=== PATIENT | female | born 1980 | race Caucasian/White ===

== ENCOUNTER 2018-04-23 22:29 | Emergency (ER) | payer OTHER, SELFPAY ==
[2018-04-23 22:30] VITALS: BP 122/86; PULSE 92; RESP 16; TEMP 36.7; O2SAT 99; BMI 22.4
[2018-04-23] MEDS: predniSONE 20 MG Tablet 40 MG PO (23:46)
[2018-04-23] MEDS: Famotidine 20 MG Tablet 40 MG PO (23:46)
[2018-04-23] MEDS: Lidocaine/Epi/Tetracaine 50 ML 1 APPLIC TOPICAL (23:46)
--- NOTE | 2018-04-24 00:30 | ED.DCSUM_ITS ---
- ER Visit Summary Date of Service: 04/24/18 Chief Complaint: Bee sting History of Present Illness: The patient is a 37 F who was stung on the left forearm yesterday. Patient thinks the stinger may still be in her arm. There is an area of redness to the left forearm that increased after working all night. She denies shortness of breath or throat tightness. Physical Examination: Vital signs unremarkable. Patient sitting upright in bed no acute distress. Head neck examination is normal. Heart is regular rate and rhythm. Lung sounds are clear. Abdomen is soft nontender. Left upper extremity examination was a 6 x 9 cm area of erythema on the volar portion of the left forearm consistent with a localized reaction to a sting. There is a central dark area that may represent a retained portion of the stinger. Normal neuro exam is noted. Test Results: [] Emergency Department Course and Treatment: Let is applied to the left forearm. There is a small piece of stinger removed. I am unsure if the full piece has b een removed. Patient is treated with Pepcid and prednisone. She will receive prescriptions for the same. She will continue to watch for any signs of infection. Treatment Plan: [] Disposition: Discharge Impression: Localized reaction to bee sting This note was generated with [employer] dictation software. It may contain incorrect words, spelling, and punctuation that were not noted in review of the chart prior to signing ED Disposition - Plan for ED Patient: Chief Complaint: Allergic Reaction Referrals: Care Physician,No Primary [Primary Care Provider] -
--- NOTE | 2018-04-24 00:30 | ED.DEP ---
ED Disposition - Plan for ED Patient: Disposition: Home or Assisted Living Chief Complaint: Allergic Reaction Instructions: ED Bite Sting Insect Local Allergic React Prescriptions: Prednisone [Deltasone] 40 mg PO DAILY #10 tablet Famotidine [Pepcid] 20 mg PO BID #28 tablet Referrals: Librado Coto MD [STAFF PHYSICIAN] - As Needed
[2018-04-24 00:39] VITALS: PULSE 78; RESP 16; O2SAT 98
== END 2018-04-24 00:40 | disposition home or self-care (01) ==
PROVIDERS: Emergency Provider Emergency Medicine
DX: T63.441A Toxic effect of venom of bees, accidental (unintentional), initial encounter (principal); R21 Rash and other nonspecific skin eruption; Y92.9 Unspecified place or not applicable; Z72.0 Tobacco use
CPT/HCPCS: 99283

== ENCOUNTER 2018-09-08 03:57 | Emergency (ER) | payer OTHER, SELFPAY ==
[2018-09-08 03:58] VITALS: BP 147/101; PULSE 65; RESP 18; TEMP 36.9; O2SAT 97; BMI 23.3
[2018-09-08] MEDS: Ketorolac 30 MG/ML Syringe IV (04:12)
[2018-09-08] MEDS: Ondansetron 4 MG/2 ML Vial IV (04:12)
[2018-09-08] MEDS: 0.9% Normal Saline 1,000 ML 1000 ML IV (04:12)
[2018-09-08 04:30] LABS: Absolute Lymphocyte Count 1.48 X10^3/ul (0.83-4.51); Absolute Neutrophil Count 11.7 X10^3/uL (2.0-7.7); Basophil# 0.03 X10^3/uL; Basophil% 0.2 % (0-1); Eosinophil# 0.14 X10^3/uL; Hemoglobin 14.6 g/dl (12.0-15.0); Lymphocyte # 1.48 X10^3/ul (4.0); Lymphocyte % 10.3 % (19-41); Mean Corp Hgb Conc 33.2 g/gl (32-36); Mean Corpuscular Hgb 30.8 pg (27.0-32.0); Mean Corpuscular Volume 92.8 fL (81-99); Mean Platelet Vol. 9.8 fl (6.2-12.0); Monocyte# 0.94 X10^3/uL; Monocyte% 6.5 % (0-10); Neutrophil # 11.74 X10^3/uL (2.7-7.7); Neutrophil % 81.7 % (47-70); Platelet Count 272 K/mm3 (150-450); RBC Distribution Width SD 40.7 fl (35.1-43.9); Red Blood Count 4.74 M/mm3 (4.2-5.4); White Blood Count 14.4 K/mm3 (4.4-11.0)
[2018-09-08 04:41] LABS: POSITIVE COUNT NO; POSITIVE DIFFERENTIAL NO; POSITIVE MORPHOLOGY NO
[2018-09-08 05:17] LABS: ALB/GLOB Ratio 1.3 RATIO (0.9-2.4); AST(SGOT) 16 U/L (15-37); Alanine Aminotransfer ALT/SGPT 21 U/L (13-56); Albumin, Serum 4.2 g/dL (3.2-5.0); Alkaline Phosphatase 82 U/L (45-117); Anion Gap 8 (5-15); Calcium,Total 9.2 mg/dL (8.5-10.1); Chloride 104 mmol/L (98-107); Creatinine, Serum 0.79 mg/dL (0.55-1.02); EST Glomerular Filtration Rate 86 mL/min (>60); Est Glom Filt Rate - Afr Amer 104 mL/min (>60); Estimated Creatinine Clearance 74.87 ml/min; Globulin 3.3 g/dL (2.2-4.2); Glucose 129 mg/dL (74-106); Lipase 125 U/L (73-393); Protein, Total 7.5 g/dL (6.4-8.2); Sodium Level 140 mmol/L (136-145)
[2018-09-08 05:18] LABS: BUN 14 mg/dL (7-18); BUN/Creat Ratio 17.7 RATIO (10-20); Pregnancy, Serum, hCG Quali. NEGATIVE Negative (0-9 Nonpreg)
--- NOTE | 2018-09-08 05:41 | CT_ITS ---
STUDY: CT ABDOMEN AND PELVIS WITH CONTRAST REASON FOR EXAM: Female, 38 years old. Abdominal pain RADIATION DOSAGE (If Supplied By Facility): CTDIvol = ( 12.25 ) mGy, DLP = ( 397.22 ) mGycm TECHNIQUE: Transaxial images were obtained from the dome of the diaphragm to the symphysis pubis without oral contrast. Isovue 300 100ML IV was administered. Sagittal and coronal images were reconstructed. Individualized dose optimization techniques were used for this CT. COMPARISON: None. FINDINGS: The visualized lung bases are unremarkable. The visualized portions of the heart are within normal limits. Normal liver. Normal gallbladder and extrahepatic biliary system. Normal spleen. Normal pancreas. Normal bilateral adrenal glands. Normal right kidney. Normal left kidney. There is diffuse mucosal edema and thickening of the stomach body and antrum consistent with gastritis. There is NO obstruction or perforation. The small bowel is unremarkable. There are diverticula of the colon. There is mild mucosal thickening of the sigmoid and LEFT colon which could indicate colitis. The appendix is normal. Normal abdominal aorta. Normal inferior vena cava. Normal retroperitoneum. Normal urinary bladder. Uterus and ovaries are unremarkable. There is NO ascites or free air, abscess or adenopathy. Normal abdominal wall. Normal osseous structures. CT/Abdomen/Pelvis W IV Cont ONLY IMPRESSION: There is diffuse mucosal edema and thickening of the stomach body and antrum consistent with gastritis. There is NO obstruction or perforation. The small bowel is unremarkable. There are diverticula of the colon. There is mild mucosal thickening of the sigmoid and LEFT colon which could indicate colitis. The appendix is normal. Uterus and ovaries are unremarkable. There is NO ascites or free air, abscess or adenopathy. Electronically Signed: Rico Hills MD at 6:32 EST , Service support ,
[2018-09-08] MEDS: Morphine 4 MG/ML Syringe IV (06:00)
--- NOTE | 2018-09-08 06:07 | ED.DCSUM_ITS ---
- ER Visit Summary Date of Service: 09/08/18 Chief Complaint: Abdominal pain History of Present Illness: The patient is a 38 F who presents with abdominal pain. This began acutely about 5 hours before presentation. She describes it as sharp and shooting. It is diffuse. She also reports 4 episodes of emesis. She states that with the most recent episode they appeared to be blood-tinged. No gross hematemesis. She denies any diarrhea. No urinary symptoms such as dysuria frequency urgency or hematuria. Physical Examination: Afebrile vitals notable only for blood pressure 147/101 Moist mucous membranes Heart regular rate and rhythm Lungs are clear Abdomen soft nondistended she does have diffuse nonfocal tenderness without guarding without rebound Alert Test Results: Labs notable for white blood cell count 14.4. Chemistries including hepatic function unremarkable and lipase is normal. CT of the abdomen and pelvis shows diffuse mucosal edema and thickening of the stomach body and antrum as well as mild mucosal thickening of the sigmoid and left colon. Normal appendix. Normal gallbladder. Emergency Department Course and Treatment: Patient was initially treated with IV fluids Toradol and Zofran. She states that her pain transiently improved and she was able to fall asleep. However her pain then returned and worsened. She was given IV morphine. On reevaluation and reexamination of her abdomen her pain has become more focal to the right lower quadrant no Rovsing sign no Banks sign. At this point she was sent for CT to rule out acute appendicitis. CT as above consistent with gastritis. Patient denies heavy NSAID use or alcohol use. She feels much better after the morphine. She feels well enough to go home. She was given prescriptions for Carafate, Prilosec, and a short course of [place] for acute pain control. She understands to return for new or worsening symptoms and was instructed on specific signs and symptoms to monitor for. She was referred to Dr. Nolasco for follow-up and will likely need EGD. Patient comfortable with this plan. All questions answered bedside. Patient discharged. Treatment Plan: [] Disposition: Discharge Impression: Gastritis This note was generated with [employer] dictation software. It may contain incorrect words, spelling, and punctuation that were not noted in review of the chart prior to signing ED Disposition - Plan for ED Patient: Referrals: Care Physician,No Primary [Primary Care Provider] -
[2018-09-08 06:33] VITALS: BP 140/90; PULSE 74; RESP 18; TEMP 37; O2SAT 99
--- NOTE | 2018-09-08 06:46 | ED.DEP ---
ED Disposition - Plan for ED Patient: Instructions: ED Gastritis Prescriptions: Hydrocodone Bitart/Apap 5-325 [[place] 5MG-325MG] 1 tab PO Q6H PRN PRN 3 Days #12 tab PRN Reason: Pain Omeprazole [Prilosec] 40 mg PO DAILY #60 cap Sucralfate [Carafate] 1 gm PO 4X/DAY 14 Days tab Referrals: Care Physician,No Primary [Primary Care Provider] - Katt Nolasco MD [STAFF PHYSICIAN] -
--- NOTE | 2018-09-08 06:49 | DCINST.ED_ITS ---
ED Disposition - Plan for ED Patient: Instructions: ED Gastritis Prescriptions: Hydrocodone Bitart/Apap 5-325 [[place] 5MG-325MG] 1 tab PO Q6H PRN PRN 3 Days #12 tab PRN Reason: Pain Omeprazole [Prilosec] 40 mg PO DAILY #60 cap Sucralfate [Carafate] 1 gm PO 4X/DAY 14 Days tab Referrals: Care Physician,No Primary [Primary Care Provider] - Katt Nolasco MD [STAFF PHYSICIAN] -
[2018-09-08 06:55] VITALS: BP 140/70; PULSE 85; RESP 16; O2SAT 99
== END 2018-09-08 06:55 | disposition home or self-care (01) ==
LOC: ED 04:29
PROVIDERS: Emergency Provider Emergency Medicine
DX: K29.70 Gastritis, unspecified, without bleeding (principal)
CPT/HCPCS: 74177; 80053; 83690; 84703; 85025; 96361; 96374; 96375; 99283; J7030; Q9967; A4216; J2405

== ENCOUNTER 2020-09-21 15:25 | Emergency (ER) | payer OTHER, SELFPAY ==
[2020-09-21 15:25] VITALS: BP 152/117; PULSE 84; RESP 15; TEMP 36.8; O2SAT 99; BMI 26.9
--- NOTE | 2020-09-21 15:59 | CT_ITS ---
STUDY: CT BRAIN WITHOUT CONTRAST REASON FOR EXAM: Female, 40 years old. left facial numbness'' RADIATION DOSAGE (If Supplied By Facility): CTDIvol = ( 44.99 ) mGy, DLP = ( 694.87 ) mGycm TECHNIQUE: Transaxial CT imaging of the brain was performed without administration of intravenous contrast material. Individualized dose optimization techniques were used for this CT. COMPARISON: 04/10/2017 FINDINGS: Normal soft tissue structures. Normal calvarium. Normal size ventricles and extra-axial spaces for the patient''s age. Normal white matter tracts of the cerebral hemispheres. Normal basal ganglia and thalami. Normal brainstem. Normal cerebellum. There is no intracranial hemorrhage. There are no findings of an acute ischemic infarction. Normal visualized paranasal sinuses. CT/Brain/Head without Contrast IMPRESSION: Normal unenhanced CT scan of the brain. Electronically Signed: Nadeem Juan MD at 17:01 EST , Service support ,
--- NOTE | 2020-09-21 16:01 | EKG12_ITS ---
Test Reason : Blood Pressure : / mmHG Vent. Rate : 066 BPM Atrial Rate : 066 BPM P-R Int : 140 ms QRS Dur : 070 ms QT Int : 402 ms P-R-T Axes : 046 036 040 degrees QTc Int : 421 ms Normal sinus rhythm Normal ECG Confirmed by WOODY JAMISON, LD ([id number]), editor house organ MALENA SALGUERO ([id number]) on 09/27/2020 10:17:38 A M Referred By: Confirmed By:SURJIT MCKAY MD
--- NOTE | 2020-09-21 16:02 | ED.VISSUMM ---
- ER Visit Summary Date of Service: 09/21/20 Chief Complaint: Left facial and left arm numbness and tingling. History of Present Illness: The patient is a 40 F dates are 11 AM noticed some left facial numbness and it moved to her left arm around 230. No prior history. Denies any headache. States that when she was working her blood pressure was elevated. They sent her to an urgent care who then sent her in the emergency department. She denies any nausea, vomiting, diarrhea or fever. No recent head trauma. She is never had a stroke or mini stroke. She is not diabetic. Physical Examination: Well-appearing middle-aged female. Initial blood pressure was 152/117 on my exam in the room she is 125/93. Otherwise vital signs are stable afebrile. H EENT exam normal. Pupils round reactive light extra motions are intact. Normal speech. No facial droop. Neck nontender. Lungs clear to auscultation bilaterally. Heart regular rhythm rate about 80 no murmur. Abdomen soft nontender. Normal bowel sounds. Patient moving all 4 extremities. Neurovascular intact. Equal symmetrical 5 and 5 voltage regulator assembler strength. Dorsi plantarflexion intact no edema. Fingertip to nose [id number] within normal limits. NIH score is normal and her neurologic exam is normal. Test Results: The brain without contrast read by the radiologist was read as normal. Reviewed by me. EKG sinus rhythm rate of 66 no acute abnormality. CBC normal. Chemistries normal normal creatinine and gap. Repeat exam patient is doing well at 7:12 PM. Exam normal. She will be discharged to home. Emergency Department Course and Treatment: White female with left-sided facial and arm numbness. Has a normal neurologic exam. CAT scan and labs are being obtained. Treatment Plan: Outpatient follow-up with a local primary care physician. Return if worse. Disposition: Discharge Impression: Transient left facial and left arm numbness of uncertain etiology This note was generated with [employer] dictation software. It may contain incorrect words, spelling, and punctuation that were not noted in review of the chart prior to signing ED Disposition - Plan for ED Patient: Referrals: Care Physician,No Primary [Primary Care Provider] -
--- NOTE | 2020-09-21 16:09 | NURSING ---
NO OLD EKGS
[2020-09-21 16:28] LABS: Absolute Lymphocyte Count 1.67 X10^3/uL (0.83-4.51); Absolute Neutrophil Count 7.5 X10^3/uL (2.0-7.7); Basophil# 0.04 X10^3/uL; Basophil% 0.4 % (0-1); Eosinophil# 0.06 X10^3/uL; Eosinophils% 0.6 % (0-5); Hematocrit 45.2 % (37-47); Hemoglobin 14.8 g/dL (12.0-15.0); Lymphocyte # 1.67 X10^3/ul (4.0); Lymphocyte % 16.6 % (19-41); Mean Corp Hgb Conc 32.7 g/dL (32-36); Mean Corpuscular Hgb 30.8 pg (27.0-32.0); Mean Platelet Vol. 9.8 fl (6.2-12.0); Monocyte# 0.78 X10^3/uL; Monocyte% 7.7 % (0-10); NRBC Flagged by Analyzer 0 % (0-5); Neutrophil # 7.46 X10^3/uL (2.7-7.7); Neutrophil % 74.1 % (47-70); Platelet Count 321 K/mm3 (150-450); RBC Distribution Width CV 11.6 % (11.6-14.6); RBC Distribution Width SD 40.1 fl (35.1-43.9); Red Blood Count 4.81 M/mm3 (4.2-5.4); White Blood Count 10.1 K/mm3 (4.4-11.0)
[2020-09-21 16:37] LABS: BUN 11 mg/dL (7-18); Creatinine, Serum 0.91 mg/dL (0.55-1.02); Glucose 121 mg/dL (74-106)
[2020-09-21 16:38] LABS: Anion Gap 5 (5-15); BUN/Creat Ratio 12.1 RATIO (10-20); Calcium,Total 9.2 mg/dL (8.5-10.1); Chloride 106 mmol/L (98-107); EST Glomerular Filtration Rate 72 mL/min (>60); Est Glom Filt Rate - Afr Amer 87 mL/min (>60); Potassium 3.6 mmol/L (3.5-5.1); Sodium Level 139 mmol/L (136-145)
[2020-09-21 17:44] VITALS: BP 118/82; PULSE 75; RESP 20; O2SAT 98
[2020-09-21 18:00] VITALS: PULSE 70; RESP 18; O2SAT 97
--- NOTE | 2020-09-21 19:14 | ED.DEP ---
ED Disposition - Plan for ED Patient: Disposition: Home or Assisted Living Instructions: ED Paraesthesias Referrals: Brandon Dyer MD [STAFF PHYSICIAN] - 1 Week Additional Instructions: Follow-up with local primary care physician. All your test today and CAT scan were unremarkable. Return if feeling worse.
[2020-09-21 19:19] VITALS: BP 118/82; PULSE 70; PULSE 76; RESP 16; RESP 17; O2SAT 97; O2SAT 98
== END 2020-09-21 19:30 | disposition home or self-care (01) ==
PROVIDERS: Emergency Provider Emergency Medicine
DX: R20.0 Anesthesia of skin (principal)
CPT/HCPCS: 70450; 80048; 85025; 93005; 99283